=== PATIENT | female | born 1965 | race American Indian/Alaskan Native ===

== ENCOUNTER 2019-03-11 08:23 | Day surgery (SDC) | payer OTHER ==
[~2019-03-11 08:23] MED LIST: ceFAZolin/Water 2 GM/20 ML 2 GM/20 ML SYRINGE IV NR
[2019-03-11 10:00] LABS: INR 0.99 (0.87-1.13); Partial Thromboplastin Time 29.1 Sec. (24.2-36.6)
[2019-03-11 10:05] LABS: Calcium 9.5 mg/dL (8.4-10.2)
[2019-03-11 10:07] LABS: Basophils % (Auto) 0.6 % (0.0-1.8); Eosinophils # (Auto) 0.1 K/mm3 (0.0-0.4); Eosinophils % (Auto) 3.7 % (0.0-4.3); Hematocrit 32.2 % (30.3-42.9); Hemoglobin 10.1 gm/dl (10.1-14.3); Lymphocytes # (Auto) 0.7 K/mm3 (1.2-5.4); Lymphocytes % (Auto) 23.8 % (13.4-35.0); Mean Corpuscular HGB Conc 32 % (30-34); Mean Corpuscular Volume 75 fl (79-97); Monocytes # (Auto) 0.4 K/mm3 (0.0-0.8); Monocytes % (Auto) 12.6 % (0.0-7.3); Platelet Count 201 K/mm3 (140-440); Red Blood Count 4.27 M/mm3 (3.65-5.03); Red Cell Distribution Width 16.3 % (13.2-15.2)
[2019-03-11] MEDS ORDERED: MIDAZOLAM 2 MG/2 ML INJ ONE (10:54)
[2019-03-11] MEDS ORDERED: fentaNYL 100 MCG/2 ML INJ ONE (10:54)
[2019-03-11] MEDS ORDERED: HEPARIN/NS 5000 UNIT/500ML 500 ML IR ONE (10:54)
[2019-03-11] MEDS ORDERED: KETOROLAC 30 MG/1 ML INJ ONE (10:55)
[2019-03-11] MEDS: LIDOCAINE (2%) 20 MG/1 ML VIAL 20 ML MDV INFILTRATI ONE ×2 (11:37→11:45)
--- NOTE | 2019-03-11 12:09 | Short Stay Summary ---
Short Stay Documentation Date of service: 03/11/19 - History Principal diagnosis: Venous compression H&P: obtained from office - Allergies and Medications Current Medications: Allergies bee venom protein (honey bee) Allergy (Unverified 03/11/19 08:25) Anaphylaxis lisinopril Adverse Reaction (Unverified 03/11/19 08:24) Shortness of Breath Penicillins Adverse Reaction (Unverified 03/11/19 08:24) Hives verapamil Adverse Reaction (Unverified 03/11/19 08:24) Shortness of Breath Home Medications Medication Instructions Recorded Confirmed Last Taken Type ALPRAZolam [Xanax TAB] 0.5 mg PO BID PRN 03/11/19 03/11/19 2 Weeks Ago History ~02/25/19 Gabapentin [Neurontin] 300 mg PO BID 03/11/19 03/11/19 03/10/19 History Levothyroxine Sodium [Synthroid] 200 mcg PO DAILY 03/11/19 03/11/19 03/10/19 History Minoxidil [Loniten] 20 mg PO BID 03/11/19 03/11/19 03/11/19 05:00 History Ramipril 10 mg PO BID 03/11/19 03/11/19 03/10/19 History carvediloL [Coreg] 25 mg PO BID 03/11/19 03/11/19 03/10/19 History traMADoL [Ultram] 50 mg PO Q6HR PRN 03/11/19 03/11/19 03/08/19 History Active Medications Cefazolin Sodium (Ancef/Sterile Water 2 Gm/20 Ml) 2 gm in 20 mls @ 80 mls/hr IV PREOP NR; Protocol Sodium Chloride (Nacl 0.9% 500 Ml) 500 mls @ 50 mls/hr IV DIRECT CEE Sodium Chloride (Sodium Chloride Flush Syringe 10 Ml) 10 ml IV PRN NR - Brief post op/procedure progress note Date of procedure: 03/11/19 Pre-op diagnosis: Venous compression Post-op diagnosis: other (dilated cardiomyopathy) Procedure: BLE venogram with IVUS Anesthesia: local Surgeon: ERIN WASSERMAN Estimated blood loss: minimal Pathology: none Condition: stable - Disposition Condition at discharge: Good Disposition: [id number] TO HOME OR SELFCARE Short Stay Discharge Plan Activity: advance as tolerated Weight Bearing Status: Weight Bear as Tolerated Diet: regular Wound: keep clean and dry, per your surgeon's advice Follow up with: PRIMARY CARE, [Primary Care Provider] - 7 Days
--- NOTE | 2019-03-11 12:15 | Operative Report ---
Operative Report Operative Report: Exam: Bilateral lower extremity venogram, intravascular ultrasound Clinical indication: Patient with a history of persistent bilateral lower extremity swelling and ultrasound evidence of reflux with maximal treatment of her superficial veins. Date: 03/11/2019 Procedure: Following an explanation of the risks, benefits and alternatives; written informed consent was obtained. The patient was brought to the angiographic suite and placed in supine position on the examination table. Initial ultrasound of her legs demonstrated a patent femoral and proximal greater saphenous veins. The patient was prepped and draped in the usual sterile fashion. 1% lidocaine was used for anesthesia. Under ultrasound guidance, the right proximal femoral vein was cannulated with a 7 cm 18-gauge needle. A 0.035 guidewire was advanced centrally. The needle was removed and a 5 [place] sheath placed. Under ultrasound guidance, the proximal left greater saphenous vein was cannulated with a 7 cm 18-gauge needle. A 0.035 guidewire was advanced centrally. The needle was removed and a 5 [place] sheath placed. Contrast was injected through the sheath which demonstrates tortuosity of the veins. Decision was made to evaluate further with intravascular ultrasound. The sheaths were upsized over the guidewire is to 10 [place] sheaths bilaterally. Intravascular ultrasound was versed performed through the right sheath followed by the left sheath. Image vessels including the IVC, right common iliac vein, right external iliac vein, right common femoral vein, left common iliac vein, left external iliac vein and left common femoral vein. There is noted to be bilateral 20% stenosis within the external iliac veins which does not appear to be hemodynamically significant. The remaining visualized veins including the areas of stenosis or distended. The IVC is enlarged. Bilateral lower extremity venogram was then performed through both sheaths simultaneously. This demonstrates mild tortuosity of the external iliac veins bilaterally without hemodynamically significant stenosis. Additional venography was performed to the right sheath and images obtained of the IVC and right atrium. The cardiac silhouette encompasses approximately three quarters of the chest. There is distention of the IVC with transit of contrast through the right atrium into the right ventricle and pulmonary outflow tract. At this point, the guidewire was sheath were removed and hemostasis achieved using manual compression. Sterile compression dressings were applied. The patient tolerated the procedure well. There were no immediate post procedure complications. Conscious sedation was performed under the guidance of radiologic nursing. Continuous cardiopulmonary monitoring was utilized. Impression: 1) Bilateral lower extremity venogram demonstrating a minimal amount of narrowing within the external iliac veins bilaterally. 2) Intravascular ultrasound of the IVC, right common iliac vein, right external iliac vein, right common femoral vein, left common iliac vein, left external iliac vein and left common femoral vein demonstrating 25-30% stenosis within the external iliac veins bilaterally which does not appear to be flow-limiting. 3) Imaging obtained of the IVC and heart demonstrate a significantly enlarged cardiac silhouette as well as distention of the IVC. Would recommend further evaluation with cardiology.
[2019-03-11] MEDS ORDERED: SODIUM CHLORIDE 0.9% 500 ML 500 ML IV SCH (12:30)
[2019-03-11 14:07] VITALS: BP 142/88
== END 2019-03-11 14:30 | disposition home or self-care (01) ==
LOC: CATHLABREC 08:23
PROVIDERS: ATTEND Radiology Diagnostic Radiology
DX: I87.1 Compression of vein (principal); I10 Essential (primary) hypertension; K21.9 Gastro-esophageal reflux disease without esophagitis; M79.7 Fibromyalgia; M19.90 Unspecified osteoarthritis, unspecified site; E03.9 Hypothyroidism, unspecified; Z98.890 Other specified postprocedural states; Z90.710 Acquired absence of both cervix and uterus; Z88.0 Allergy status to penicillin; Z79.899 Other long term (current) drug therapy; Z87.891 Personal history of nicotine dependence; Z88.8 Allergy status to other drugs, medicaments and biological substances
CPT/HCPCS: 36415; 37252; 37253; 75822; 76937; 80048; 85025; 85610; 85730; 99156; 99157; C1753; C1769; C1894; J1644; J2250; J3010; J7040; J1885; Q9967